=== PATIENT | male | born 1975 | race Asian ===

== ENCOUNTER 2019-04-05 15:09 | Emergency (ER) | payer OTHER ==
[~2019-04-05] VITALS: Ht 182.9 cm; Wt 110.2 kg
[2019-04-05 15:33] VITALS: Ht 182.9 cm; Wt 110.2 kg
[2019-04-05 17:28] LABS: BASOPHIL % 0.7 % (0-2); PLATELET COUNT 205 x10^3mcL (130-400); RED CELL DISTRIBUTION WIDTH 12.7 % (11.5-14.5)
[2019-04-05 17:36] LABS: CALCIUM 9.2 mg/dL (8.5-10.1); CARBON DIOXIDE 28.9 mmol/L (21-32); CHLORIDE SERUM 103 mmol/L (98-107); CREATININE SERUM 1.1 mg/dL (0.7-1.3); GFR1 > 60 mL/min; GLUCOSE SERUM 104 mg/dL (74-106); SODIUM SERUM 140 mmol/L (136-145)
[2019-04-05 17:41] LABS: ALBUMIN 4.3 g/dL (3.4-5.0); ALKALINE PHOSPHATASE 75 U/L (46-116); ALT/SGPT 123 U/L (16-63); AMYLASE 67 U/L (25-115); AST/SGOT 38 U/L (15-37); BILIRUBIN TOTAL 0.58 mg/dL (0.20-1.00); LIPASE 113 IU/L (73-393)
[2019-04-05 17:43] LABS: TOTAL PROTEIN, SERUM 8.3 g/dL (6.4-8.2)
[2019-04-05 19:06] VITALS: BP 128/87
== END 2019-04-05 19:06 | disposition home or self-care (01) ==
LOC: ED 15:09
PROVIDERS: Emergency Medicine
DX: R74.0 Nonspecific elevation of levels of transaminase and lactic acid dehydrogenase [LDH] (principal); R11.0 Nausea; R42 Dizziness and giddiness; R19.7 Diarrhea, unspecified
CPT/HCPCS: 36415; Q0162